=== PATIENT | male | born 1985 | race Caucasian/White ===

== ENCOUNTER 2025-01-20 03:41 | Emergency (ER) | payer OTHER ==
[~2025-01-20] VITALS: Ht 180.3 cm; Wt 96.2 kg
[2025-01-20 03:49] VITALS: BP 134/62; O2SAT 97
[2025-01-20] MEDS ORDERED: TDAP DIPH,PERTUSS,TET VAC/PF 0.5 ML DISP.SYRIN IM ONE (04:07)
[2025-01-20] MEDS ORDERED: HYDROMORPHONE 1 MG/1 ML DISP.SYRIN ONE (04:07)
[2025-01-20] MEDS: HYDROMORPHONE 1 MG/1 ML DISP.SYRIN IM ONE (04:18)
[2025-01-20] MEDS: TDAP DIPH,PERTUSS,TET VAC/PF 0.5 ML DISP.SYRIN IM ONE (04:22)
[2025-01-20] MEDS ORDERED: BACITRACIN ZINC OINT 15 GM TUBE ONE (05:05)
[2025-01-20] MEDS ORDERED: CEPH500C2 PO (05:06)
[2025-01-20] MEDS: BACITRACIN ZINC OINT 15 GM TUBE TOP STA (05:18)
== END 2025-01-20 05:23 | disposition home or self-care (01) ==
LOC: ER 03:55
DX: S81.811A Laceration without foreign body, right lower leg, initial encounter (principal); F17.210 Nicotine dependence, cigarettes, uncomplicated; W18.39XA Other fall on same level, initial encounter; Y93.89 Activity, other specified; Y92.89 Other specified places as the place of occurrence of the external cause; Y99.9 Unspecified external cause status
CPT/HCPCS: 73590; 90715; A4606; A4663; J1171